=== PATIENT | male | born 1980 | race Caucasian/White ===

== ENCOUNTER → 2017-06-30 | Outpatient (REF) | payer BC | LOC: M LAB REF 16:56 | DX: J03.90 Acute tonsillitis, unspecified (principal) | CPT/HCPCS: 87077 ==

== ENCOUNTER → 2017-07-28 | Outpatient (REF) | payer BC | LOC: M LAB REF 17:42 | DX: J02.9 Acute pharyngitis, unspecified (principal) | CPT/HCPCS: 87077 ==

== ENCOUNTER 2019-11-21 18:20 | Emergency (ER) | payer BC, OTHER ==
[~2019-11-21] VITALS: Ht 170.2 cm; Wt 68.1 kg
[2019-11-21] MEDS ORDERED: ESCI20TA PO (18:25)
[2019-11-21] MEDS ORDERED: LIDOCAINE W/EPINEPHRINE 1% 20ML VIAL As Ordered ONE (18:51)
[2019-11-21] MEDS ORDERED: BOOSTRIX/ADACEL VACCINE (DIPHTH/PERTUSS/ACELL/TETANUS) 0.5ML SYR IM ONE (19:00)
[2019-11-21] MEDS ORDERED: LIDOCAINE W/EPINEPHRINE 1% 20ML VIAL SC ONE (19:45)
[2019-11-21] MEDS ORDERED: KEFL250C11 PO (19:47)
[2019-11-21] MEDS ORDERED: PERC5TAB12 PO (19:48)
[2019-11-21] MEDS ORDERED: PERCOCET 5MG/325MG TAB PO ONE (20:15)
[2019-11-21 20:17] VITALS: BP 129/95
--- NOTE | 2019-11-22 13:52 | ER ---
DATE OF CONSULTATION: 11/21/2019 CHIEF COMPLAINT: Right hand pain. 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 He immediately appreciated pain and bleeding that was sharp in nature, and it was severe. It was made worse with any sort of range of motion or movement, lifting, pushing, pulling and alleviated only with rest, immobilization, and pain medication. He presented to the emergency room (ER) for further evaluation. Denies any fevers, chills, nausea, vomiting, or pain elsewhere. A complete ten-system review is conducted. Pertinent positives and negatives in history of present illness (HPI). All other systems negative. The patient denies any medical history. He denies any medication. No known drug allergies. Denies any past surgeries. 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 PHYSICAL EXAMINATION: The patient awake, alert, oriented, well dressed. Appropriate affect. Breathing unlabored on room air. Normocephalic, atraumatic. Right upper extremity: There is about a 3 cm curvilinear laceration just proximal to the metatarsophalangeal (MTP) on the dorsal aspect of the right hand of the 3rd finger. He has an inability to straighten the middle finger but can make the composite fist, positive anterior interosseous nerve (AIN), posterior interosseous nerve (PIN), and ulnar motor nerve functions. Sensation intact to light touch, superficial sensory branches of the radial nerve, median nerve, ulnar nerve, and axillary nerve. Radial pulse 2+, regular rate. through the laceration, you can actually see the distal stump of the extensor digitorum tendon. I explained to the patient that he suffered a right middle finger tendon laceration and that this would require operative intervention. If the patient was comfortable, we could actually take care of this in the ER. The patient was agreeable to this. So, at this point, we injected 15 mL of 1% lidocaine with epinephrine surrounding the incision, a local block. Once this had taken effect, we thoroughly irrigated the open wound. We identified the distal and proximal extent of the extensor digitorum communis (EDC) tendon to the middle finger. We had to extend the laceration approximately 3 cm proximally and 1 cm distally for a proper visualization. We then used a 3-0 Vicryl and placed three figure-of-8 stitches to stitch the tendon together, at which point we were able to have the patient range his finger to demonstrate integrity of the repair, along with no gapping. We were happy with our repair at this point. We irrigated the wound thoroughly, closed the skin with interrupted single simple stitches of 3-0 nylon, at which point we placed a dressing of Adaptic gauze, Webril, and placed the patient in a wrist and finger splint in full extension. I explained to the patient that he can followup in my office in 1 week, at which point we will convert him over to a new brace until I can get him a prescription to see a hand therapist to form a thermoplast splint and start guarded range of motion exercises. The patient expressed understanding and agreement with that plan. His tetanus is being updated in the ER, and he is being given a prescription of Keflex to help decrease the risk of infection. We will be nonweightbearing to that right upper extremity. We will see him in 1 week. PRUDENCIO
== END 2019-11-21 20:21 | disposition home or self-care (01) ==
LOC: M ED 18:20
DX: S61.212A Laceration without foreign body of right middle finger without damage to nail, initial encounter (principal); S66.322A Laceration of extensor muscle, fascia and tendon of right middle finger at wrist and hand level, initial encounter; W26.8XXA Contact with other sharp object(s), not elsewhere classified, initial encounter; Y92.89 Other specified places as the place of occurrence of the external cause; Y93.89 Activity, other specified; Y99.0 Civilian activity done for income or pay; Z79.899 Other long term (current) drug therapy; F17.200 Nicotine dependence, unspecified, uncomplicated

== ENCOUNTER 2019-11-26 15:30 | Emergency (ER) | payer OTHER ==
[~2019-11-26] VITALS: Ht 170.2 cm; Wt 69.4 kg
[~2019-11-26 15:30] MED LIST: ESCI20TA PO; KEFL250C11 PO; PERC5TAB12 PO
[2019-11-26 15:31] VITALS: BP 143/84
[2019-11-26] MEDS ORDERED: OXYC1TAB23 PO (15:51)
[2019-11-26] MEDS ORDERED: PERCOCET 5MG/325MG TAB PO ONE (16:00)
== END 2019-11-26 16:02 | disposition home or self-care (01) ==
LOC: M ED 15:30
DX: Z76.0 Encounter for issue of repeat prescription (principal)